=== PATIENT | male | born 1965 | race Caucasian/White ===

== ENCOUNTER 2016-04-07 15:17 | Emergency (ER) | payer MEDICARE, MEDICAID ==
[2016-04-07 15:23] VITALS: TEMP 98; BMI 26.4
--- NOTE | 2016-04-07 15:44 | EDPRACDOC ---
- General Information Chief Complaint: Altered Mental Status Stated Complaint: TALKING OUT OF HEAD FALLING AROUND Time Seen by Provider: 04/07/16 15:28 Information Source: Patient Mode Of Arrival: Car Home Medications: Home Medications Fluticasone Propionate [Flonase] 2 spray JHONATAN DAILY 06/26/13 Gabapentin [Neurontin] 800 mg PO TID 06/26/13 Hydroxyzine HCl 50 mg PO HS 06/26/13 Levothyroxine Sodium 25 mcg PO DAILY 06/26/13 Sertraline HCl [Zoloft] 100 mg PO DAILY 06/26/13 Tamsulosin HCl [Flomax] 0.4 mg PO DAILY 06/26/13 Testosterone Cypionate [Depo-Testosterone] 2 ml IM .Q 2 WEEKS 06/26/13 Loratadine [Claritin] 10 mg PO DAILY 12/23/13 Rivaroxaban [Xarelto] 20 mg PO .DAILY SEE COMMENTS 02/23/14 Cholecalciferol (Vitamin D3) [Vitamin D3] 2,000 unit PO DAILY 04/12/15 Alprazolam [Xanax] 1 mg PO BID 04/18/15 Metoprolol Succinate [Toprol Xl] 100 mg PO DAILY 04/18/15 Simvastatin [Zocor] 20 mg PO DAILY 04/18/15 Valacyclovir HCl [Valtrex] 500 mg PO QHS 04/18/15 Oxycodone HCl [Roxicodone] 15 mg PO Q6H PRN 11/14/15 Quetiapine Fumarate [Seroquel] 400 mg PO QHS 11/14/15 Ranitidine [Zantac] 150 mg PO BID 11/14/15 Amitriptyline HCl 75 mg PO BID 04/07/16 Cyclobenzaprine HCl [Flexeril] 10 mg PO BID PRN 04/07/16 Allergies/Adverse Reactions: Allergies Allergy/AdvReac Type Severity Reaction Status Date / Time No Known Allergies Allergy Verified 04/07/16 15:23 - History of Present Illness Onset: 2-3 WEEKS Exact Onset of Symptoms: Unknown Symptoms began: Gradually Duration: Intermittent Symptoms Currently: Reports: Unchanged Altered Quality: Reports: Confusion Altered Severity: Reports: Mild Recent Symptoms of: Reports: Medications/drug use (STATES LAST IV DA WAS 1 MONTH AGO), Trauma (STATES HE HAS FALLEN SEVERAL TIMES). Denies: Cough, Fever, Nausea, Urinary symptoms, Vomiting Relevant History: Reports: IV drug use Associated signs and symptoms: Reports: Slurred speech, Weakness (GENERALIZED). Denies: Chest pain, Headache, Seizure ED Past Medical History - History Reviewed Yes Nurses notes reviewed and agree except as marked - Patient Medical History Neurological History: Reports: Seizures (2013) Cardiac History: Reports: Hypertension, Heart Attack, Hypercholesterolemia GI/ History: Reports: Urinary Tract Infection, Gastroesophageal Reflux, Ulcer Musculoskeletal History: Reports: Arthritis Psychological History: Reports: Depression, Anxiety, Bipolar Disorder. Denies: Substance Use Disorder Systemic History: Reports: Cancer (PROSTATE S/P CHEMOTHERAPY), Hypothyroidism Additional Past Medical History: CHRONIC BACK PAIN, IV DRUG ABUSE Surgical History: Reports: Cholecystectomy, Tonsillectomy/Adnoidectomy ( uvulectomy), Other (Roberto Fundopication, The patient reports four back surgeries.) Date of Last Radiation Treatment: 2004 - Family Medical History Reports: Diabetes (father), Stroke (father), Cardiac Disorders (parents) - Social Medical History Smoking Status: Never smoker Social History: Denies: Amphetamine Use, Barbiturate Use, Benzodiazipine Use, Cocaine Use, Heroin Use, Marijuana Use, Methadone Use, MDMA (Ecstasy) Use, Substance Use Disorder Substance Abuse: Illicit Drugs (IV DA) Lives With: Family Lives In: Home EDM Review of Systems - Review of Systems ROS Negative Except as Marked: Yes All systems reviewed and were negative except as marked - Physical Exam Constitutional: Alert (Awake), No apparent distress Oriented to: Time, Person, Place Last recorded Vital Signs: Last Vital Signs Temp 98 F 04/07/16 15:18 Pulse 93 04/07/16 15:18 Resp 20 04/07/16 15:18 BP 134/76 04/07/16 15:18 Pulse Ox 96 04/07/16 15:18 Oxygen Pulse Oxygen Saturation 96 O2 Device Room Air Oxygen Flow Rate Fraction of Inspired Oxygen ( FIO2) - HEENT Head: Normal ( normocephalic) Eye Exam: Normal (PERRL, EOMI, Sclera white) Oropharynx: Normal (Pharynx:Moist without exudate,Gums-no swelling) Tympanic Membrane: Normal ENT EAC: Normal TMJ: Normal Nose: No Symptoms Reported (septum midline) Neck: Normal (FROM, trachea at midline) - Respiratory/Cardiovascular Respiratory: Normal - CTA (BBS clear to auscultation without adventitious sounds ) Cardiovascular: Normal (RRR without murmur, gallop or rub) - GI Auscultation: Normal (NABS) Palpation: Normal (Soft,No rebound or guarding, non distended) Tenderness: Non tender Alfaro's Sign: Negative - Musculoskeletal Back: Normal (Non-Tender) Extremities: Normal (Normal tone, Pulses 2+ No cyanosis or edema, FROM), Other ( MULTIPLE SCARRED (NON-ACUTE) TRACK OLSON ESPERANZA FOREARMS C/W STATED IVDA.) - Integumentary Skin: Normal, Warm, Dry Lymphatics: Normal (no adenopathy) - Neurologic Memory Impaired: Normal Motor Function: Normal (Normal tone, Pulses 2+ No cyanosis or edema, FROM) Cranial Nerve: Normal (CN II-X11 intact sensation, strength 5/5) Cerebellar: Normal Mood Description: Normal Thought: Coherent Perception: Normal - Differential Diagnosis Dehydration, Hypercalcemia, Hypernatremia, Hyponatremia, Post-ictal, Drug Overdose, ETOH intoxication, Medication toxicity, Sepsis, UTI - Re-evaluation Re-evaluation 3 Re-evaluation Time: 20:43 (IMPROVED, REVIEWED SYMPTOMS AND TIME FRAME WITH MIKAELA.) - Results 04/07/16 16:29 04/07/16 16:29 - EKG EKG #1 EKG Time: 15:52 -: Yes EKG interpreted by me Rate: bpm: 88 Catlett: Normal Rhythm: NSR Block: None Hypertrophy: None ST: Normal - Diagnostic Imaging Head Image interpreted by: Radiologist Patient Name: RANDEE FABIAN JR LOC: ED : 1965 AGE: 50 Order Date:04/07/16 Date of Service:05/19 Report # [id number] Ord Physician: Jeanine Angulo MD Exam # [id number] Emergency Physician: Jeanine Angulo MD Exam(s): [id number] CT/CT HEAD W/O CM CLINICAL DATA: Confusion and ataxia. History of IV drug abuse. EXAM: CT HEAD WITHOUT CONTRAST TECHNIQUE: Contiguous axial images were obtained from the base of the skull through the vertex without intravenous contrast. COMPARISON: None. FINDINGS: There is mild low attenuation within the subcortical and periventricular white matter compatible with chronic microvascular disease and brain atrophy. There is no abnormal extra-axial fluid collection, intracranial hemorrhage or mass. No evidence for acute cortical infarct. The mastoid air cells are clear. The paranasal sinuses are clear. The calvarium is intact. The ventricular volumes are normal. IMPRESSION: 1. No acute intracranial abnormalities. 2. Chronic microvascular disease. Electronically Signed By: Ivonne Higginbotham M.D. On: 04/07/2016 16:51 Electronically Signed By: Ivonne Higginbotham MD Electronically Signed Date/Time: 654 Dictate Date/Time: 04/07/16 1643 Technologist: Belinda Jimenez Transcribed By: VRTran Transcribed Date/Time: 04/07/16 1651 Chest Image interpreted by: Radiologist Patient Name: RANDEE FABIAN JR LOC: ED : 1965 AGE: 50 Order Date:04/07/16 Date of Service:05/19 Report # [id number] Ord Physician: Jeanine Angulo MD Exam # [id number] Emergency Physician: Jeanine Angulo MD Exam(s): [id number] RAD/DG CHEST PORTABLE CLINICAL DATA: Sepsis. EXAM: PORTABLE CHEST 1 VIEW COMPARISON: 08/08/2014 FINDINGS: The heart size and mediastinal contours are within normal limits. Both lungs are clear. The visualized skeletal structures are unremarkable. IMPRESSION: No active disease. Electronically Signed By: Ivonne Higginbotham M.D. On: 04/07/2016 15:48 Electronically Signed By: Ivonne Higginbotham MD Electronically Signed Date/Time: 551 Dictate Date/Time: 04/07/16 1547 Technologist: Federico Angel Transcribed By: VRTran Transcribed Date/Time: 04/07/16 1548 Hip Image interpreted by: Radiologist Patient Name: RANDEE FABIAN JR LOC: ED : 1965 AGE: 50 Order Date:04/07/16 Date of Service:05/19 Report # [id number] Ord Physician: Jeanine Angulo MD Exam # [id number] Emergency Physician: Jeanine Angulo MD Exam(s): [id number] RAD/DG HIP COMPLETE 2+V-R CLINICAL DATA: Acute right hip pain after fall. EXAM: RIGHT HIP (WITH PELVIS) 2-3 VIEWS COMPARISON: None. FINDINGS: There is no evidence of hip fracture or dislocation. There is no evidence of arthropathy or other focal bone abnormality. IMPRESSION: Normal right hip. Electronically Signed By: Arturo Perrin Jr, M.D. On: 04/07/2016 20:25 Electronically Signed By: Arturo Perrin MD Electronically Signed Date/Time: 7 Dictate Date/Time: 04/07/162022 Technologist: Federico Angel Transcribed By: Tan Transcribed Date/Time: 04/07/162024 - Departure Disposition: Home Final Diagnosis: Altered mental status, Falls frequently Instructions: Acute Delirium (ED) Education/Counseling Given To: Patient Education/Counseling Given Regarding: Diagnosis, Treatment, Prognosis Referrals: Glen Schmidt MD [Primary Care Provider] - One Week Prescriptions: No Action Tamsulosin HCl [Flomax] 0.4 mg PO DAILY Sertraline HCl [Zoloft] 100 mg PO DAILY Hydroxyzine HCl 50 mg PO HS Levothyroxine Sodium 25 mcg PO DAILY Gabapentin [Neurontin] 800 mg PO TID Testosterone Cypionate [Depo-Testosterone] 2 ml IM .Q 2 WEEKS Fluticasone Propionate [Flonase] 2 spray JHONATAN DAILY Loratadine [Claritin] 10 mg PO DAILY Rivaroxaban [Xarelto] 20 mg PO .DAILY SEE COMMENTS Cholecalciferol (Vitamin D3) [Vitamin D3] 2,000 unit PO DAILY Valacyclovir HCl [Valtrex] 500 mg PO QHS Simvastatin [Zocor] 20 mg PO DAILY Metoprolol Succinate [Toprol Xl] 100 mg PO DAILY Alprazolam [Xanax] 1 mg PO BID Ranitidine [Zantac] 150 mg PO BID Oxycodone HCl [Roxicodone] 15 mg PO Q6H PRN PRN Reason: Pain Quetiapine Fumarate [Seroquel] 400 mg PO QHS Cyclobenzaprine HCl [Flexeril] 10 mg PO BID PRN PRN Reason: Muscle Spasms Amitriptyline HCl 75 mg PO BID Additional Instructions: REDUCE XANAX AND NARCOTIC PAIN MEDICINE MUCH POSSIBLE.
--- NOTE | 2016-04-07 15:51 | DIRPT ---
CLINICAL DATA: Sepsis. EXAM: PORTABLE CHEST 1 VIEW COMPARISON: 08/08/2014 FINDINGS: The heart size and mediastinal contours are within normal limits. Both lungs are clear. The visualized skeletal structures are unremarkable. IMPRESSION: No active disease. Electronically Signed By: Ivonne Higginbotham M.D. On: 04/07/2016 15:48
[2016-04-07 15:57] LABS: ALL NEG? NO
[2016-04-07 16:13] LABS: LEUKOCYTES/URINE NEG (NEGATIVE); MDMA* NEG (NEGATIVE); METHAMPHETAMINES NEG (NEGATIVE); NITRITE/URINE NEG (NEGATIVE); OXYCODONE *POSITIVE* (NEGATIVE); RBC/URINE 0-2 (0-2); URINE OCCULT BLOOD NEG (NEG/TRACE); WBC/URINE 0-2 (0-2)
[2016-04-07 16:32] LABS: AUTOMATED BASOPHIL 0.5 % (0-2); AUTOMATED EOSINOPHIL 3.2 % (0-5); AUTOMATED LYMPH 27.4 % (17-44); AUTOMATED MONOCYTE 11.1 % (3-10); AUTOMATED NEUTROPHIL 57.8 % (45-76)
[2016-04-07 16:43] LABS: BLOOD UREA NITROGEN 17 MG/DL (9-20); CALC CORRECTED 9.2 MG/DL (8.4-10.2); CALCULATED OSMOLALITY 260 MOs/Kg (270-290); CHLORIDE 100 mEq/L (98-107); ETOH-MGDL < 10 mg/dL; GLUCOSE 71 mg/dL (70-99); SODIUM LEVEL 135 mEq/L (137-146); TOTAL PROTEIN 7.1 G/DL (6.3-8.2)
--- NOTE | 2016-04-07 16:54 | DIRPT ---
CLINICAL DATA: Confusion and ataxia. History of IV drug abuse. EXAM: CT HEAD WITHOUT CONTRAST TECHNIQUE: Contiguous axial images were obtained from the base of the skull through the vertex without intravenous contrast. COMPARISON: None. FINDINGS: There is mild low attenuation within the subcortical and periventricular white matter compatible with chronic microvascular disease and brain atrophy. There is no abnormal extra-axial fluid collection, intracranial hemorrhage or mass. No evidence for acute cortical infarct. The mastoid air cells are clear. The paranasal sinuses are clear. The calvarium is intact. The ventricular volumes are normal. IMPRESSION: 1. No acute intracranial abnormalities. 2. Chronic microvascular disease. Electronically Signed By: Ivonne Higginbotham M.D. On: 04/07/2016 16:51
[2016-04-07 17:02] LABS: CPK TOTAL WITH POSSIBLE MB 749 IU/L (55-170)
[2016-04-07 17:29] LABS: CPKMB 8.1 ng/mL (0-4.5); CPKMB RELATIVE INDEX 1.1 (0.0-2.2)
[2016-04-07 18:42] LABS: PARTIAL THROMB. TIME 22.7 SEC (22-35)
--- NOTE | 2016-04-07 20:27 | DIRPT ---
CLINICAL DATA: Acute right hip pain after fall. EXAM: RIGHT HIP (WITH PELVIS) 2-3 VIEWS COMPARISON: None. FINDINGS: There is no evidence of hip fracture or dislocation. There is no evidence of arthropathy or other focal bone abnormality. IMPRESSION: Normal right hip. Electronically Signed By: Arturo Perrin Jr, M.D. On: 04/07/2016 20:25
[2016-04-07 21:24] VITALS: BP 124/62; PULSE 78
== END 2016-04-07 21:33 | disposition home or self-care (01) ==
LOC: ED 15:17
DX: R41.82 Altered mental status, unspecified (principal); R29.6 Repeated falls
CPT/HCPCS: 36415; 70450; 71010; 73502; 80053; 80307; 81001; 82550; 82553; 83605; 84484; 85025; 85610; 85730; 87040; 87077; 87086; 87186; 93005; 99283; G0480